=== PATIENT | male | born 1940 | race Two or more races ===

== ENCOUNTER 2024-08-12 11:21 | Emergency (ER) | payer MEDICARE, OTHER, SELFPAY ==
[2024-08-12 11:37] VITALS: BP 197/82; PULSE 76; RESP 16; TEMP 36.8; O2SAT 99; BMI 30.9
--- NOTE | 2024-08-12 11:45 | XR_ITS ---
Examination: CT cervical spine without contrast 2-D sagittal reconstructions 2-D coronal reconstructions 3-D reconstructions. Exam date and time:August 12, 2024 1247 hrs. Indications: Patient fell today with injury to the neck, followed by neck pain CTDI:vol (mGy) 9.07 DLP: (mGycm) 181 Technique: Multiple 2 mm axial sections of the cervical spine have been obtained. The coronal and sagittal reconstructions have been obtained. 3-D reconstructions have been obtained. Low dose protocols were performed. One or more of the following dose reduction techniques were used; automated exposure control, adjustment of the mA and/or KV according to patient size, use of iterative reconstruction technique. Findings: Axial sections demonstrate intact base of the skull. C1 exhibit satisfactory relationship to the odontoid. No acute cervical vertebral body fracture seen. Alignment posterior spinous processes satisfactory. Impression: No acute cervical fracture. Significant right thyromegaly, 10 mm left thyroid nodule, recommend dedicated thyroid sonography follow-up
--- NOTE | 2024-08-12 11:45 | XR_ITS ---
Examination: CT brain head without contrast. 2-D sagittal coronal reconstructions Date and time of exam:August 12, 2024 at 1247 hrs. Indications: Episode dizziness lightheadedness today, patient fell, injury to the head, head pain CTDI: vol (mGy):56.8 DLP: (mGycm):1103 Technique: Multiple CT axial sections of the brain have been obtained, 5 mm slice thickness. Contrast has not been administered. 2-D sagittal, coronal reconstructions have been obtained Low dose protocols were performed. One or more of the following dose reduction techniques were used; automated exposure control, adjustment of the mA and/or KV according to patient size, use of iterative reconstruction technique. Findings: No significant ventricular enlargement. Intra-axial or extra-axial hemorrhage density is not seen. No mass effect or midline shift Basal cisterns are not remarkable. Fourth ventricle is midline. Cranial vault intact. Impression: Negative for acute hemorrhage, mass effect or midline shift
--- NOTE | 2024-08-12 11:45 | XR_ITS ---
Examination: Knee bilateral, 6 views Technique: Knee AP, lateral, oblique each knee total 6 views Date and time of exam: August 12, 2024 1157 hrs. Comparison July 11, 2019 Indications: Injury to both knees 2 days ago with bilateral knee pain Findings: Significant osteopenia Total right knee arthroplasty. Satisfactory alignment No fracture No loosening of the prosthetic components Mild narrowing medial lateral patellofemoral joints left knee No fracture or dislocation involving the left knee Impression: No fracture or dislocation involving either knee
--- NOTE | 2024-08-12 11:45 | XR_ITS ---
Examination: CT lumbar spine, without contrast. 2-D sagittal reconstructions. 2-D coronal reconstructions. 3-D reconstructions. Date and time of exam:August 12, 2024 1250 hrs. Indications: Patient fell today with injury to the lower back followed by lower back pain CTDI: vol (mGy):29.5 DLP: (mGycm):1046 Technique: Multiple 1.25 mm axial sections of the lumbar spine without intravenous contrast 2-D sagittal coronal reconstructions 3-D reconstructions Low dose protocols, automated exposure control, adjustment MA KV according to patient size Findings: No lumbar vertebral body compression fracture Advanced disc narrowing L2-L3, L3-L4, L4-L5 with anterior and posterior osteophyte formation No spondylolisthesis Lumbar pedicles, laminae, transverse and posterior spinous processes intact L5-S1 6 mm central lumbar disc bulge L4-L5 severe overall spinal stenosis, axial image 88, 4 mm central disc bulge facet arthropathy and thickening of ligamentum flavum circumferentially narrowing the thecal sac with severe bilateral neural foraminal stenosis L3-L4 severe overall spinal stenosis, 2 mm central subarticular osteophyte disc complex, facet arthropathy and thickening of ligamenta flava severely circumferentially narrowing the thecal sac L2-L3 no disc protrusion L1-L2 no disc protrusion Impression: No acute lumbar fracture L5-S1 6 mm central lumbar disc bulge L4-L5, L3-L4 severe overall spinal stenosis
--- NOTE | 2024-08-12 11:45 | PD.EDRME ---
Rapid Medical Screening Exam E Arrival date/time: 08/12/24 11:21 84-year-old male presents emergency department today with daughter reports patient had a fall. Per the daughter patient has not been taking his medications and is unable to live by himself anymore Chief Complaint: Dizziness Vital signs: Vital Signs Temperature 98.2 F 08/12/24 11:37 Pulse Rate 76 08/12/24 11:37 Respiratory Rate 16 08/12/24 11:37 Blood Pressure 197/82 H 08/12/24 11:37 Pulse Oximetry (%) 99 08/12/24 11:37 Oxygen Delivery Method Room Air 08/12/24 11:37
--- NOTE | 2024-08-12 12:48 | PD.EDDIZZY ---
ED Dizzyness RME/HPI General Chief Complaint: Dizziness Stated Complaint: light head, dizziness, hurts all over s/p fall Time Seen by Provider: 08/12/24 12:04 Arrival date/time: 08/12/24 11:21 6 this is an 84-year-old male that is brought in by daughter with complaints of fall. Patient lives at home alone for the past 6 years. Per patient daughter patient's has approximately 6 years ago. patient is patient is alone since then. Patient recently decided he no longer wants to take his medications, no longer wants to use his CPAP for his sleep apnea. Per patient daughter he is not safe at home. Patient was found by a police and fire dispatcher 2 days ago wandering the streets and fell at that time. Patient denies any trauma to his head or neck. Patient reports that he did not get dizzy he just tripped. Patient denies any depression and anxiety but states what is the point of taking medication or being on CPAP and what is the point of trying to live longer. Per patient daughter patient has been lonely recently and has had issues with memory. Patient has edema to his lower extremities he does not know when it started. Patient has not seen his primary doctor in 2 years. Patient's daughter lives in [place] and she flew here to help him find placement. She would like him to go to [place] with her if that is possible. Patient denies fever, chills, cough, runny nose, sore throat, nausea, vomiting, diarrhea. Patient has a history of high blood, sleep apnea, dm. RME / HPI RME / HPI Narrative: 08/12/24 11:21 84-year-old male presents emergency department today with daughter reports patient had a fall. Per the daughter patient has not been taking his medications and is unable to live by himself anymore Related Data Home Medications ?Medication ?Instructions ?Recorded ?Confirmed Benazepril Hcl * (LOTENSIN *) 5 mg PO QDAY #0 tabs 03/31/16 Terazosin * (HYTRIN *) 10 mg PO QDAY #0 caps 03/31/16 VIT D3 2,000 iu QDAY ##0 03/31/16 VIT E 400 PO QDAY ##0 03/31/16 cyanocobalamin (vitamin B-12) 1,000 mcg PO QDAY #0 tabs 03/31/16 1,000 mcg tablet (Vitamin B-12) folic acid 1 mg tablet 1 mg PO QDAY #0 tabs 03/31/16 furosemide 20 mg tablet (Lasix) 20 mg PO QDAY #0 tabs 03/31/16 lutein 20 mg capsule 20 mg PO QDAY #0 caps 03/31/16 memantine 28 mg capsule 28 mg PO QDAY ##0 03/31/16 sprinkle,extended release 24hr (Namenda XR) metformin 1,000 mg tablet 1,000 mg PO QAM PRN HIGH SUGAR 03/31/16 (Glucophage) LEVELS #0 tabs metoprolol succinate 50 mg 50 mg PO QDAY ##0 03/31/16 tablet,extended release 24 hr (Toprol XL) ropinirole 2 mg tablet (Requip) 2 mg PO QAM #0 tabs 03/31/16 vitamin A palmitate 4,500 mcg QDAY ##0 03/31/16 (15,000 unit) tablet Lactobacillus acidophilus 10 1 cap PO QDAY ##0 07/21/16 billion cell capsule (Probiotic) VITAMIN B50 1 tab PO QDAY ##0 07/21/16 meloxicam 15 mg tablet (Mobic) 15 mg PO HS #0 tabs 07/21/16 Hydrocodone/Acetaminophen * (NORCO 1 tab PO Q6H PRN PAIN #0 tabs 07/22/16 10/325 *) Allergies Allergy/AdvReac Type Severity Reaction Status Date / Time dicyclomine Allergy Unknown Rash Verified 07/22/16 08:51 Review of Systems Review of Systems Systems Reviewed: All systems reviewed, normal except as documented Past Medical History Past Medical History Comments PMH COMMENT: dm,. sleep apnea, htn ED Exam General General appearance: Present alert and in no apparent distress Head Head exam: Present atraumatic Eye Eye exam: Present normal appearance, PERRL and EOMI ENT ENT exam: Present normal exam, normal oropharynx and mucous membranes moist Neck Neck exam: Present normal inspection, full ROM and trachea midline Chest Chest inspection: Present normal inspection and symmetric chest wall rise Respiratory Respiratory exam: Present normal lung sounds bilaterally Cardiovascular Cardiovascular exam: Present regular rate, normal rhythm and normal heart sounds Abdominal Exam Abdominal exam: Present soft Extremities Exam Extremities exam: Present full ROM and other (mild swelling to lower extremities ) Back Exam Back exam: Present normal inspection and full ROM Neurological Exam Neurological exam: Present alert, oriented X3 and CN II-XII intact Psychiatric Psychiatric exam: Present normal affect and normal mood Skin Skin exam: Present warm, dry, intact and normal color Course Quality Measures none Orders Category Date Time Status EKG (ED ONLY) *Do not use* NOW Care 08/12/24 11:45 Completed Home Health Referral Routine Cons 08/12/24 16:[address] cervical spine wo con Stat Exams 08/12/24 11:[address] head/brain wo con Stat Exams 08/12/24 11:[address] lumbar spine wo con Stat Exams 08/12/24 11:45 Completed EKG (ED Only) Stat Exams 08/12/24 11:45 Ordered XR knee BI 3V Stat Exams 08/12/24 11:45 Completed A1C [Glycohemoglobin w (eAG)] Stat Lab 08/12/24 12:21 Completed B-Type Natriuretic Peptide Stat Lab 08/12/24 12:21 Completed CBC Stat Lab 08/12/24 12:21 Completed Comprehensive Metabolic Panel Stat Lab 08/12/24 12:21 Completed Drug Screen,Urine Stat Lab 08/12/24 13:15 Completed Magnesium Stat Lab 08/12/24 12:21 Completed Partial Thromboplastin Time Stat Lab 08/12/24 12:21 Completed Prothrombin Time with INR Stat Lab 08/12/24 12:21 Completed Troponin I Stat Lab 08/12/24 12:21 Completed Urinalysis Stat Lab 08/12/24 13:15 Completed Vital Signs Vital signs: Vital Signs Temperature 98.2 F 08/12/24 11:37 Pulse Rate 76 08/12/24 11:37 Respiratory Rate 16 08/12/24 11:37 Blood Pressure 197/82 H 08/12/24 11:37 Pulse Oximetry (%) 99 08/12/24 11:37 Oxygen Delivery Method Room Air 08/12/24 11:37 Procedures -ED EKG Interpretation #1: Date of EK08/12/24 Time of EK:50 Rate: 71 Interpretation: Interpreted by me (sinus rhythm ) EKG Impression: No ectopy, Normal QRS and Normal intervals Dizziness MDM Narrative MDM Narrative:: This is an 84-year-old male that is brought in by daughter with complaints of fall. Patient lives at home alone for the past 6 years. Per patient daughter patient's has approximately 6 years ago. patient is patient is alone since then. Patient recently decided he no longer wants to take his medications, no longer wants to use his CPAP for his sleep apnea. Per patient daughter he is not safe at home. Patient was found by a police and fire dispatcher 2 days ago wandering the streets and fell at that time. Patient denies any trauma to his head or neck. Patient reports that he did not get dizzy he just tripped. Patient denies any depression and anxiety but states what is the point of taking medication or being on CPAP and what is the point of trying to live longer. Per patient daughter patient has been lonely recently and has had issues with memory. Patient has edema to his lower extremities he does not know when it started. Patient has not seen his primary doctor in 2 years. Patient's daughter lives in [place] and she flew here to help him find placement. She would like him to go to [place] with her if that is possible. Patient denies fever, chills, cough, runny nose, sore throat, nausea, vomiting, diarrhea. Patient has a history of high blood, sleep apnea, dm. Labs unremarkable. Kidney function appears to be at baseline. Discussed at length with family. Pt has an appointment with primary provider. Daughter feels comfortable taking him home. Pt will follow up with primary provider about enlarged thyroid seen on ct scan/. Pt not having fevers, eating and drinking with no issues. Pt has no complaints. Pt Discussed case with and will send patient home at this time CT cervical spine: Findings: Axial sections demonstrate intact base of the skull. C1 exhibit satisfactory relationship to the odontoid. No acute cervical vertebral body fracture seen. Alignment posterior spinous processes satisfactory. Impression: No acute cervical fracture. Significant right thyromegaly, 10 mm left thyroid nodule, recommend dedicated thyroid sonography follow-up Ct head: Findings: No significant ventricular enlargement. Intra-axial or extra-axial hemorrhage density is not seen. No mass effect or midline shift Basal cisterns are not remarkable. Fourth ventricle is midline. Cranial vault intact. Impression: Negative for acute hemorrhage, mass effect or midline shift knee x ray: Findings: Significant osteopenia Total right knee arthroplasty. Satisfactory alignment No fracture No loosening of the prosthetic components Mild narrowing medial lateral patellofemoral joints left knee No fracture or dislocation involving the left knee Impression: No fracture or dislocation involving either knee Lumbar spine ct : Findings: No lumbar vertebral body compression fracture Advanced disc narrowing L2-L3, L3-L4, L4-L5 with anterior and posterior osteophyte formation No spondylolisthesis Lumbar pedicles, laminae, transverse and posterior spinous processes intact L5-S1 6 mm central lumbar disc bulge L4-L5 severe overall spinal stenosis, axial image 88, 4 mm central disc bulge facet arthropathy and thickening of ligamentum flavum circumferentially narrowing the thecal sac with severe bilateral neural foraminal stenosis L3-L4 severe overall spinal stenosis, 2 mm central subarticular osteophyte disc complex, facet arthropathy and thickening of ligamenta flava severely circumferentially narrowing the thecal sac L2-L3 no disc protrusion L1-L2 no disc protrusion Impression: No acute lumbar fracture L5-S1 6 mm central lumbar disc bulge L4-L5, L3-L4 severe overall spinal stenosis Patient data External records reviewed:: [facility] previous records Clinical information provided by:: patient Social determinants that could affect healthcare access:: none Patient has the following chronic illnesses:: dm, htn, sleep apnea How is presenting disease/condition affected by chronic disease/condition?: exacerbated by Evaluation data The following diagnostics were reviewed and interpreted by me:: lab results, radiology exam(s) and EKG tracing(s) Lab and/or radiology exams considered but not ordered:: none Interpretation Summary: see note Medications / Prescriptions Medications or Prescriptions considered but not ordered:: none Medication administrations:: none Consultations Consultation(s) initiated? (list below): No Diagnosis Most likely diagnosis given after review of the tests above:: enlarged thyroid, fall Admission Indicated Admission indicated?: not indicated Admission Request Was there a request for admission?: No Disposition Plan Disposition Plan: Discharge Discharge Attestation Discharge Attestation: The patient and all family members were given an opportunity to ask questions and understood the discharge instructions. Discharge instructions specifically effects, indications for sooner follow up or return to the emergency department, and the expected course of current diagnosis. Patient condition: Stable Discharge Plan Plan Patient Disposition: HOME (Self Care) Patient condition on transfer: Stable Prescriptions/Referrals Prescriptions/Med Rec: No Action metformin [Glucophage] 1,000 MG tablet 1,000 mg PO QAM PRN (Reason: HIGH SUGAR LEVELS) Qty: 0 Terazosin * (HYTRIN *) 10 MG capsule 10 mg PO QDAY Qty: 0 Benazepril Hcl * (LOTENSIN *) 5 MG tablet 5 mg PO QDAY Qty: 0 memantine [Namenda XR] 28 MG cap,sprinkle,ER 24hr dose pack 28 mg PO QDAY Qty: 0 ropinirole [Requip] 2 MG tablet 2 mg PO QAM Qty: 0 folic acid 1 MG tablet 1 mg PO QDAY Qty: 0 metoprolol succinate [Toprol XL] 50 MG tablet extended release 24 hr 50 mg PO QDAY Qty: 0 furosemide [Lasix] 20 MG tablet 20 mg PO QDAY Qty: 0 vitamin A palmitate 15,000 UNIT tablet QDAY Qty: 0 lutein 20 MG capsule 20 mg PO QDAY Qty: 0 cyanocobalamin (vitamin B-12) [Vitamin B-12] 1,000 MCG tablet 1,000 mcg PO QDAY Qty: 0 VIT D3 2,000 iu QDAY Qty: 0 VIT E 400 PO QDAY Qty: 0 meloxicam [Mobic] 15 MG tablet 15 mg PO HS Qty: 0 Lactobacillus acidophilus [Probiotic] 1 EACH capsule 1 cap PO QDAY Qty: 0 VITAMIN B50 1 tab PO QDAY Qty: 0 Hydrocodone/Acetaminophen * (NORCO 10/325 *) 1 TAB tablet 1 tab PO Q6H PRN (Reason: PAIN) Qty: 0 Referrals: Florencio Rios MD [Primary Care Provider] - In 1 week Problem List Clinical Impression: Fall, Left thyroid nodule, Thyromegaly Patient/Caregiver Discharge Instructions Discharge Activity: activity as tolerated Education Materials: ED Fall Prevention Additional Instructions: Follow up with primary provider in 1-2 days. Come back to ED if symptoms change or worsen. Please keep scheduled appointment with Dr Rios. CT scan showed right thyromegaly, 10 mm left thyroid nodule. Patient will need thyroid function test done Print Language: Syriac Stand Alone Forms: [facility] Award Info., Patient Portal Info Letter Attestation Attestation The patient was seen by the midlevel practitioner. I, the co-signing physician, was present during the entire ER visit. While I did not physically examine the patient, I was available for consultation as needed.
[2024-08-12 12:56] LABS: Basophils # (Auto) 0.1 Thou/mm3 (0.0-0.2); Basophils % (Auto) 1 % (0-2.5); Eosinophils # (Auto) 0.1 Thou/mm3 (0.0-0.5); Eosinophils % (Auto) 2 % (0-10); Hematocrit 39.2 % (41.0-53.0); Hemoglobin 13.5 g/dL (13.5-16.0); Immature Granulocytes % (Auto) 0 % (0-0); Immature Granulocytes Auto 0.01 Thou/mm3 (0.00-0.00); Lymphocytes % (Auto) 32 % (10-50); Mean Corpuscular HGB Conc 34.4 g/dl (31.0-37.0); Mean Corpuscular Hemoglobin 32.7 pg (25.0-35.0); Mean Corpuscular Volume 95 fL (80-100); Monocytes # (Auto) 0.7 Thou/mm3 (0.0-0.8); Monocytes % (Auto) 12 % (0-12); Neutrophils # (Auto) 3.3 Thou/mm3 (1.8-7.7); Neutrophils % (Auto) 54 % (37-80); Nucleated Red Blood Cell % 0 /100 WBC (0); Platelet Count 245 Thou/mm3 (140-440); RDW Standard Deviation 47.2 fL (35.1-43.9); Red Blood Count 4.13 Miln/mm3 (4.50-5.90); White Blood Count 6.2 Thou/mm3 (3.8-10.6)
[2024-08-12 13:06] LABS: Partial Thromboplastin Time 26.8 Seconds (22.0-36.0); Prothrombin Time 10.8 Seconds (9.0-12.2)
[2024-08-12 13:10] LABS: B-Type Natriuretic Peptide 58 pg/mL (0-100)
[2024-08-12 13:12] LABS: Alanine Aminotransferase 24 U/L (10-49); Albumin, Serum 4.2 gm/dL (3.4-4.8); Albumin/Globulin Ratio 1.5 (1.2-2.2); Alkaline Phosphatase 111 U/L (46-116); Anion Gap 7 (7-16); Aspartate Amino Transferase 28 U/L (0-34); BUN/Creatinine Ratio 13 Ratio (12-20); Bilirubin,Total 0.4 mg/dL (0.3-1.2); Blood Urea Nitrogen 23 mg/dL (9-23); Calcium 9.2 mg/dL (8.3-10.6); Calcium (Corrected) 9.2 mg/dL (8.5-10.1); Carbon Dioxide 23.2 mMol/L (20.0-31.0); Chloride 109 mMol/L (98-107); Creatinine (Component) 1.8 mg/dL (0.6-1.3); Estimated Creatinine Clearance 34.8 mL/min (>60); Globulin 2.8 gm/dL (2.3-3.5); Glucose 115 mg/dL (74-106); Magnesium 1.8 mg/dL (1.6-2.6); Osmolality,Calculated 282 (275-295); Potassium 4.6 mMol/L (3.4-5.1); Sodium 139 mMol/L (136-145); Troponin I < 0.020 ng/mL (0.0-0.045); eGFR 37 See Note
[2024-08-12 13:17] LABS: Glucose Estimated Average 120 mg/dL (80-131); Hemoglobin A1C 5.8 % Hgb (4.8-6.0)
[2024-08-12 14:03] LABS: Collection Type, Urine Clean Catch
[2024-08-12 14:14] LABS: Bilirubin,Urine Negative (Negative); Blood,Urine Trace (Negative); Clarity,Urine Clear (Clear/Hazy); Color,Urine Lt-Yellow (Lt Yel-Yel); Glucose, Urine Negative (Negative); Ketones,Urine Negative (Negative); Leukocyte Esterase,Urine Negative (Negative); Nitrite,Urine Negative (Negative); Protein,Urine 2+ (Neg - Trace); RBC,Urine 3 /hpf (0-3); Squamous Epithelial Cell,Urine < 1 /hpf (0-5); Urobilinogen,Urine Negative mg/dL (0.0-1.0); WBC,Urine 2 /hpf (0-5)
[2024-08-12 14:20] LABS: Amphetamine/Methamp Scrn,U Negative (Negative); Barbiturate Screen,Urine Negative (Negative); Benzodiazepines Screen,Urine Negative (Negative); Benzoylecgonine Screen, Ur Negative (Negative); Fentanyl Screen,Urine Negative (Negative); Opiate Screen,Urine Negative (Negative); THC Screen,Urine Negative (Negative)
[2024-08-12 16:10] VITALS: BP 179/107; PULSE 75; RESP 18; TEMP 36.8; O2SAT 99
--- NOTE | 2024-08-12 16:59 | PC.CC ---
Pt Evangelista Toledo is an 84 yr old male to ED for pt reporting being light headed and dizzy and reporting overall body pain. [employer] engaged as pts daughter Michaelle Asher [phone], concerned that pt is unable to remain in his home to care for himself. [employer] met with pt and daughter at bedside. Pt has a follow up appointment with PCP Dr. Rios on 08/14/24. [employer] informed pts daughter that pt would require a 3 midnight stay for skilled placement based on Medicare Guidelines. Pt does have [employer] [place] health coverage, but per his daughter never singed up for [place] benefits. Per daughter her plan is to enroll pt in benefits. Plan per pts daughter is for pt to move to [place] with daughter. [employer] was asked to speak to pts granddaughter Nata, who is requesting medical clearance for pt to travel and neuro-cognition evaluation for to determine if pt is able to make his own decisions. [employer] encouraged family to keep primary appointment, for a better assessment of pts cognition and ability to travel. Family in agreement with [employer] to send out HH referral with [facility] being primary choice. Inquiry uploaded to About, pending response. [employer] to remain available as needed for pt care and staff support.
--- NOTE | 2024-08-13 07:33 | PC.CC ---
[facility] has accepted via [facility] with [facility] 08/14/24. Referral has been booked at this time.
== END 2024-08-12 17:00 | disposition home or self-care (01) ==
PROVIDERS: Nurse Practitioner Primary Care; Emergency Provider Emergency Medicine; PCP Family Medicine
DX: S09.90XA Unspecified injury of head, initial encounter (principal); S19.9XXA Unspecified injury of neck, initial encounter; S39.92XA Unspecified injury of lower back, initial encounter; S89.92XA Unspecified injury of left lower leg, initial encounter; S89.91XA Unspecified injury of right lower leg, initial encounter; E04.1 Nontoxic single thyroid nodule; M48.061 Spinal stenosis, lumbar region without neurogenic claudication; M51.370 Other intervertebral disc degeneration, lumbosacral region with discogenic back pain only; W19.XXXA Unspecified fall, initial encounter; Z60.2 Problems related to living alone
CPT/HCPCS: 36415; 70450; 72125; 72131; 73562; 80053; 80307; 81001; 83036; 83735; 83880; 84484; 85025; 85610; 85730; 93005; 99284